=== PATIENT | female | born 1995 | race Caucasian/White ===

== ENCOUNTER 2025-05-05 10:38 | Emergency (ER) | payer OTHER, SELFPAY ==
[2025-05-05 10:51] VITALS: BP 124/75; PULSE 109; RESP 18; TEMP 37.1; O2SAT 97; BMI 20.9
--- NOTE | 2025-05-05 11:40 | ED_ITS ---
HPI - Female Genitourinary General Chief complaint: Urogenital-Female Stated complaint: V/D Weakness in left leg, Peeing blood Time Seen by Provider: 05/05/25 11:06 Source: patient Mode of arrival: Family Vehicle History of Present Illness HPI Narrative: Ms. Glass is a pleasant 30-year-old female with no reported past medical history, active duty [employer], who presents to the emergency department for hematuria x1 day and nausea/vomiting/diarrhea, cough, fatigue x1 week. Patient also reports that she has been dealing with a left-sided low back injury with pain x4 months. 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 No other medications. Patient reports today she was supplying a urine drug test for the [facility] when she urinated blood. Her menstrual cycle ended yesterday however there was no blood in her underwear, blood was only present when she provided this urine sample. This is what prompted her ER visit today. However the patient reports that for the last week she has been sick with a cough, vomiting and diarrhea, and feeling overall extremely fatigued and occasionally dizzy. She denies any known sick contacts or new foods precipitating the symptoms but reports that she did have a fever of 101 last Saturday. She had an episode of both vomiting and diarrhea this morning. Describes both as nonbloody. She has been feeling cold. Denies current fever, chest pain, shortness of breath, abdominal pain, dysuria. No medications this morning. No concern for , she is to a woman. Related Data Previous Rx's ?Medication ?Instructions ?Recorded ondansetron 4 mg disintegrating 4 mg PO Q8H PRN nausea and 05/05/25 tablet vomiting #14 tabs sulfamethoxazole 800 1 tab PO BID 7 days #14 tabs 05/05/25 mg-trimethoprim 160 mg tablet (Bactrim DS) Allergies Allergy/AdvReac Type Severity Reaction Status Date / Time No Known Drug Allergies Allergy Verified 05/05/25 10:51 Review of Systems Review of Systems ROS Unobtainable: All systems reviewed & are unremarkable except as noted in HPI and below Exam Narrative Exam Narrative: GENERAL: 30 year old patient appears stated age. Well-developed patient, in no acute distress. HEAD: Atraumatic. Normocephalic. NECK: Trachea midline. Cervical ROM intact. CARDIOVASCULAR: Regular rate and rhythm. RESPIRATORY: ?Nonlabored respirations. ?Speaking in clear, full sentences. ?Clear to auscultation. Breath sounds equal bilaterally. No wheezes, rales, or rhonchi. ? GASTROINTESTINAL: Abdomen soft, non-tender, nondistended. BS present. EXTREMITIES: No edema or joint tenderness. Palpable DP & PT pulses. BACK: L sided CVA tenderness and left lumbar tenderness. No midline spinal tenderness. NEURO: AOx3. ?Clear speech. ?Moves all 4 extremities appropriately. SKIN: No rash or erythema of visible areas Initial Vital Signs Initial Vital Signs: Vital Signs Temperature 98.8 F 05/05/25 10:51 Pulse Rate 109 H 05/05/25 10:51 Respiratory Rate 18 05/05/25 10:51 Blood Pressure 124/75 05/05/25 10:51 Pulse Oximetry 97 05/05/25 10:51 Oxygen Delivery Method Room Air 05/05/25 10:51 Course Orders Ordered: ED Orders 05/05/25 11:38 CT abdomen pelvis w con Stat XR chest 2V Stat 05/05/25 11:44 GI Panel (Film Array) Stat 05/05/25 11:53 Complete Blood Count AUTO DIFF Stat Comprehensive Metabolic Panel Stat Lipase Stat 05/05/25 12:21 Covid-19 + FLU A/B + RSV - PCR Stat 05/05/25 13:36 Urinalysis and Microscopic Stat Urine Culture Stat Discontinued Medications Sodium Chloride (Normal Saline 0.9%) 1,000 mls @ 1,000 mls/hr IV BOLUS ONE Stop: 05/05/25 12:37 Last Infusion: 05/05/25 13:41 Dose: Infused Documented By: Admin: 05/05/25 12:13 Dose: 1,000 mls/hr Documented By: AGUS Ceftriaxone Sodium 1,000 mg/ (Sodium Chloride) 100 mls @ 200 mls/hr IV NOW ONE Stop: 05/05/25 14:03 Last Admin: 05/05/25 14:23 Dose: 200 mls/hr Documented By: AGUS Ketorolac Tromethamine (Ketorolac 30 Mg/Ml Vial) 15 mg IV NOW ONE Stop: 05/05/25 11:39 Last Admin: 05/05/25 12:13 Dose: 15 mg Documented By: AGUS Ondansetron HCl (Ondansetron 4 Mg/2 Ml Inj) 4 mg IV NOW ONE Stop: 05/05/25 11:39 Last Admin: 05/05/25 12:13 Dose: 4 mg Documented By: AGUS Vital Signs Vital signs: Vital Signs - 8 hr 05/05/25 10:51 05/05/25 14:12 Temperature 98.8 F Pulse Rate 109 H 80 Respiratory Rate 18 16 Blood Pressure 124/75 104/61 Pulse Oximetry 97 99 Oxygen Delivery Method Room Air Room Air MDM - Female Genitourinary Medical Records Medical records narrative: None available for review Lab Data 05/05/25 11:53 05/05/25 11:53 Labs: Lab Results 05/05/25 05/05/25 05/05/25 Range/Units 11:53 12:21 13:36 WBC 4.3 L (4.5-11.0) X10^3/uL RBC 4.59 (4.0-5.2) X10^6/uL Hgb 13.7 (12.0-16.0) g/dL Hct 40.3 (36-46) % MCV 87.7 (80-100) fL MCH 29.9 (26-34) PG MCHC 34.1 (30-36) % RDW 12.5 (11.6-14.8) % Plt Count 259 (150-400) X10^3/uL Neut % (Auto) 52.2 (50-75) % Lymph % (Auto) 36.8 (25-40) % [place] % (Auto) 8.8 (3-14) % Eos % (Auto) 1.0 L (2-4) % Baso % (Auto) 1.2 (0-2) % Neut # (Auto) 2300 (3559-9498) /uL Lymph # (Auto) 1600 (9685-9418) /uL [place] # (Auto) 400 (0-900) /uL Eos # (Auto) 0 (0-450) /uL Baso # (Auto) 100 (0-100) /uL Sodium 140 (137-145) mmol/L Potassium 3.8 (3.4-5.1) mmol/L Chloride 106 (98-107) mmol/L Carbon Dioxide 25 (22-32) mmol/L BUN 10 (7-17) mg/dL Creatinine 0.75 (0.52-1.04) mg/dL Estimated GFR > 60 (>60) mL/min BUN/Creatinine Ratio 13.3 (6-22) Glucose 71 (70-99) mg/dL Calcium 9.3 (8.4-10.2) mg/dL Total Bilirubin 0.8 (0.2-1.3) mg/dL AST 22 (14-36) IU/L ALT 14 (<35) IU/L Alkaline Phosphatase 50 (38-126) U/L Total Protein 6.8 (6.3-8.2) g/dL Albumin 4.4 (3.5-5.0) g/dL Globulin 2.4 (1.7-4.1) g/dL Albumin/Globulin Ratio 1.8 (1.0-2.8) Lipase 52 (23-300) U/L Urine Color Red Urine Appearance Sl cloudy Urine pH 7.0 (4.5-8.0) Ur Specific Mobile <=1.005 (1.000-1.035) Urine Protein 2+ H (Negative) Urine Glucose (UA) Negative (Negative) g/dL Urine Ketones Negative (NEGATIVE) Urine Occult Blood 3+ H (Negative) Urine Nitrate Positive H (Negative) Urine Bilirubin Negative (NEGATIVE) Urine Urobilinogen 1.0 (0.2) E.U./dL Ur Leukocyte Esterase Negative (NEGATIVE) Urine RBC 10-30/hpf H (0-5/HPF) Urine WBC 1-5/hpf (0-5/HPF) Ur Squamous Epith Cells 5-10 /hpf H (0-5/HPF) Urine Bacteria Few (2-10) H (None) Ur Culture Indicated? Cult not indicated Vol Urine Centrifuged 10ml (spun) SARS-CoV-2 (PCR) Negative (Negative) Influenza A (RT-PCR) Flu a negative (NEGATIVE) Influenza B (RT-PCR) Flu b negative (NEGATIVE) RSV (PCR) Negative (Negative) Imaging Data CT scan - abdomen/pelvis: Radiologist's Impression: PROCEDURE: CT ABDOMEN PELVIS W CON INDICATIONS: n/v/d/cough; 1 week; hematuria x 1 day; L flank TECHNIQUE: After the administration of intravenous contrast, axial sections acquired from the lung bases to the pubic symphysis. Coronal and sagittal reformats were performed. For radiation dose reduction, the following was used: automated exposure control, adjustment of mA and/or kV according to patient size. COMPARISON: None. FINDINGS: Image quality: Diagnostic. Lower Chest: No significant findings. ABDOMEN: Liver: No solid mass. Gallbladder: No radiopaque gallstones or wall thickening. Biliary ducts: No biliary dilation. Pancreas: No ductal dilation. Spleen: Size is within normal limits. Adrenal Glands: No adrenal nodules. Kidneys and Ureters: 3 mm nonobstructing calculus at the superior pole of the left kidney. No hydronephrosis. No solid mass. No complex renal cystic lesion which requires follow up. Stomach and Bowel: Normal appendix. Moderate colonic stool. Small bowel loops are nondilated. Peritoneum: No abnormal intraperitoneal fluid. No free air. Ventral Wall: No significant ventral hernia. Abdominal Nodes: No retroperitoneal or mesenteric adenopathy by size criteria. Vessels: Aorta and inferior vena cava are normal in size. PELVIS: Pelvic Organs: Anteverted uterus. Ovaries are symmetric in size. Bladder: Distended urinary bladder. Pelvic Nodes: No enlarged lymph nodes. Miscellaneous: No inguinal hernias are seen. Bones: No aggressive osseous abnormality. IMPRESSION: Nonobstructing 3 mm left renal calculus. No hydronephrosis. Approved by: Ghanshyam Palmer M.D. on 05/05/2025 at 12:22 Chest x-ray: Radiologist's Impression: PROCEDURE: XR CHEST 2V INDICATIONS: cough n/v/d x 1 week TECHNIQUE: 2 views of the chest were acquired. COMPARISON: None. FINDINGS: Surgical changes and devices: None. Lungs and pleura: Lungs are clear. No pleural effusions or pneumothorax. Mediastinum: Mediastinal contours are normal. Heart size is normal. Bones and chest wall: No suspicious bony abnormalities. Soft tissues appear unremarkable. IMPRESSION: No acute cardiopulmonary abnormality is seen. Approved by: Ghanshyam Palmer M.D. on 05/05/2025 at 12:18 MDM Narrative Medical decision making narrative: 30-year-old female with no reported past medical history, active [employer], who presents to the emergency department for hematuria x1 day and nausea/vomiting/diarrhea, cough, fatigue x1 week. Differential diagnosis includes but is not limited to gastroenteritis, electrolyte abnormality, anemia, UTI, nephrolithiasis, ureterolithiasis, renal cyst, dehydration, viral syndrome, influenza, pneumonia, bronchitis, cystitis, malignancy, etc. On exam the patient is in no acute distress, nontoxic appearing, heart rate is elevated at 109 in triage otherwise vital signs are within normal limits. Her abdomen is soft and nontender however she does have some left-sided paraspinal muscle pain/CVA tenderness. Her lower extremities are neurovascularly intact. Will obtain abdominal labs, chest x-ray, viral swab, CT abdomen and pelvis, urinalysis, GI panel, and treat the patient with Toradol for left-sided flank pain, Zofran and fluids. CT abdomen pelvis reveals nonobstructing 3 mm left renal calculus. No hydronephrosis. Chest x-ray negative for acute cardiopulmonary abnormality. Viral swab negative. Labs overall reassuring with a normal hemoglobin 13.7 hematocrit 40.3. White blood cell count is slightly decreased at 4.3. Normal platelets 259. Normal CMP, BUN 10 creatinine 0.75, sodium 140 potassium 3.8, normal LFTs, glucose 71. UA reveals gross hematuria, nitrite positive, 1-5 WBC, 5-10 squamous epithelial cells, few bacteria. Urine was sent for culture. Discussed case with the attending ER physician who advises antibiotics, emergent urology consultation not necessary as stone is within the renal pelvis. Will treat patient with 1 g ceftriaxone, discharge home on Bactrim b.i.d. x7 days, advised Urology follow up. I do believe patient is also experiencing viral syndrome given her cough, nausea vomiting diarrhea. She has had no episodes of diarrhea or vomiting while in the ER. Tolerating p.o. advised prompt PCP follow up and discussed strict ED return precautions. Both the patient and her verbalized understanding of all information and are agreeable with the plan. Prescriptions of Bactrim and Zofran sent to pharmacy of choice. She is stable for discharge home, all VS WNL. Discharge Plan Departure Patient Disposition: Home Clinical Impression: Renal calculus, Nausea, vomiting, and diarrhea Hematuria Qualifiers: Hematuria type: gross Qualified Code(s): R31.0 - Gross hematuria Instructions: DI for Kidney Stones, DI for Urinary Tract Infection (UTI) Activity Restrictions/Additional Instructions: Dear Ms. Glass, Today you were evaluated for nausea, vomiting, diarrhea, left-sided back pain, bloody urine. The CT scan revealed a stone in the left kidney. Your lab work was very reassuring. Your urinalysis did show few bacteria and nitrates which is concerning for potential urinary tract infection. Please complete the full course of antibiotics and follow up with [facility] for further management. Please rest, hydrate, use ibuprofen and Tylenol if needed for pain Please take Ibuprofen (Motrin/Advil) or Acetaminophen (Tylenol) for pain. These are available over the counter. You may take Ibuprofen 600 mg every 8 hours with food for pain. You may also take Acetaminophen 650 mg every 4-6 hours for pain. Do not exceed 3000 mg of Tylenol a day as this can cause liver damage. Do not drink alcohol with either of these medications. Please return to the emergency department immediately if you develop any new or worsening symptoms, severe pain, persistent vomiting, fevers, inability to urinate, or other concerns. Please follow up with your primary care doctor within the next 2-3 days for ER follow-up. (If you do not have a PCP you can call [phone]. ?to schedule an appointment with an [facility] Primary Care Provider) IF YOU DEVELOP ANY NEW OR WORSENING SYMPTOMS, RETURN TO THE ER! Please read the attached instructions, they highlight more specific treatments and interventions for you at home. Thank you for letting me participate in your care, Amanda Zhu PA-C Prescriptions: New sulfamethoxazole-trimethoprim [Bactrim DS] 800-160 mg tablet 1 tab PO BID 7 Days Qty: 14 0RF ondansetron 4 mg tablet,disintegrating 4 mg PO Q8H PRN (Reason: nausea and vomiting) Qty: 14 0RF Referrals: Luis Fernando Wang DO [Physician, Urology] Referral Note: 30 yo F with hematuria, 3mm left renal calculus Provider,Courtney BLACKWELL [Primary Care Provider, Family Practice] Stand Alone Forms: Patient Portal/API, Work Release Note
[2025-05-05 12:05] LABS: Add Manual Diff / Slide Review NO; Basophils Absolute Auto 100 /uL (0-100); Basophils Percent Auto 1.2 % (0-2); Eosinophils Absolute Auto 0 /uL (0-450); Hematocrit 40.3 % (36-46); Hemoglobin 13.7 g/dL (12.0-16.0); Lymphocytes Absolute Auto 1600 /uL (1100-4500); Lymphocytes Percent Auto 36.8 % (25-40); Mean Corpuscular HGB Conc 34.1 % (30-36); Mean Corpuscular Hemoglobin 29.9 PG (26-34); Mean Corpuscular Volume 87.7 fL (80-100); Monocytes Absolute Auto 400 /uL (0-900); Monocytes Percent Auto 8.8 % (3-14); Neutrophils Absolute Auto 2300 /uL (1500-7000); Neutrophils Percent Auto 52.2 % (50-75); Platelet Count 259 X10^3/uL (150-400); Red Blood Cell Count 4.59 X10^6/uL (4.0-5.2); Red Cell Distribution Width 12.5 % (11.6-14.8); White Blood Cell Count 4.3 X10^3/uL (4.5-11.0)
[2025-05-05] MEDS: ONDANSETRON 4 MG/2 ML INJ IV (12:13)
[2025-05-05] MEDS: KETOROLAC 30 MG/ML VIAL 15 MG IV (12:13)
[2025-05-05] MEDS: SODIUM CHLORIDE 0.9% 1,000 ML 1000 ML IV (12:13)
[2025-05-05 12:14] LABS: Alanine Aminotransferase 14 IU/L (<35); Albumin 4.4 g/dL (3.5-5.0); Albumin Globulin Ratio 1.8 (1.0-2.8); Alkaline Phosphatase 50 U/L (38-126); Aspartate Aminotransferase 22 IU/L (14-36); BUN Creatinine Ratio 13.3 (6-22); Bilirubin Total 0.8 mg/dL (0.2-1.3); Blood Urea Nitrogen 10 mg/dL (7-17); Calcium 9.3 mg/dL (8.4-10.2); Carbon Dioxide 25 mmol/L (22-32); Chloride 106 mmol/L (98-107); Estimated Glomerular Filt Rate > 60 mL/min (>60); Globulin 2.4 g/dL (1.7-4.1); Glucose 71 mg/dL (70-99); HEMOLYSIS < 15 (0-50); Lipase 52 U/L (23-300); Potassium 3.8 mmol/L (3.4-5.1); Sodium 140 mmol/L (137-145); Total Protein 6.8 g/dL (6.3-8.2)
[2025-05-05 13:05] LABS: COVID-19 CEPHEID 4-PLEX PCR Negative (Negative); Influenza A - CEPHEID Flu A NEGATIVE (NEGATIVE); Influenza B - CEPHEID Flu B NEGATIVE (NEGATIVE); Respiratory Syncytial Virus Negative (Negative)
[2025-05-05 13:50] LABS: Appearance Urine UA SL CLOUDY; Bilirubin Urine UA NEGATIVE (NEGATIVE); Color Urine UA RED; Glucose Urine UA NEGATIVE (Negative); Ketones Urine UA NEGATIVE (NEGATIVE); Leukocyte Esterase Urine UA NEGATIVE (NEGATIVE); Nitrite Urine UA POSITIVE (Negative); Occult Blood Urine UA 3+ (Negative); Protein Urine UA 2+ (Negative); Specific Gravity Urine UA <=1.005 (1.000-1.035)
[2025-05-05 13:57] LABS: Bacteria Urine Few (2-10); Culture Indicated Urine Cult Not Indicated; RBC Urine 10-30/HPF (0-5/HPF); Squamous Epithelial Cell Urine 5-10 /HPF (0-5/HPF); Urine Volume 10mL (spun); WBC Urine 1-5/HPF (0-5/HPF)
[2025-05-05 14:12] VITALS: BP 104/61; PULSE 80; RESP 16; O2SAT 99
[2025-05-05] MEDS: cefTRIAXone 1,000 MG in SODIUM CHLORIDE 0.9% 100 ML 200 MG IV (14:23)
== END 2025-05-05 14:56 | disposition home or self-care (01) ==
PROVIDERS: Emergency Provider Physician Assistant
DX: N20.0 Calculus of kidney (principal); R31.0 Gross hematuria; R11.2 Nausea with vomiting, unspecified; R19.7 Diarrhea, unspecified
CPT/HCPCS: 0241U; 36415; 71046; 74177; 80053; 81001; 83690; 85025; 87077; 87086; 87186; 96361; 96365; 96375; 99285; J0696; J1885; J2405; Q9967

== ENCOUNTER 2025-05-07 17:45 | Emergency (ER) | payer OTHER, SELFPAY ==
[2025-05-07 17:46] VITALS: BP 118/75; PULSE 82; RESP 14; TEMP 36.9; O2SAT 98; BMI 21.2
[2025-05-07 17:54] VITALS: BP 118/75
[2025-05-07 17:55] VITALS: PULSE 85; O2SAT 99
[2025-05-07 18:00] VITALS: PULSE 82; O2SAT 96
--- NOTE | 2025-05-07 18:07 | ED.GENADULT ---
HPI - General Adult General Chief complaint: Urogenital-Female Stated complaint: Kidney pain, nausea, Vomiting blood x1day Time Seen by Provider: 05/07/25 18:00 Source: patient Mode of arrival: Ambulatory History of Present Illness HPI narrative: 30-year-old female recent diagnosis of a kidney stone on 05/05/2025 presenting for hematemesis. Patient states that she is still having some pain to her left flank, she states that it is worse which is the reason why she came in today. States that she has been taking her medication as prescribed. Denies any other symptoms at this time not on any blood thinners. Patient was discharged home with oral antibiotics and has been taking this. Related Data Previous Rx's ?Medication ?Instructions ?Recorded ondansetron 4 mg disintegrating 4 mg PO Q8H PRN nausea and 05/05/25 tablet vomiting #14 tabs sulfamethoxazole 800 1 tab PO BID 7 days #14 tabs 05/05/25 mg-trimethoprim 160 mg tablet (Bactrim DS) Allergies Allergy/AdvReac Type Severity Reaction Status Date / Time No Known Drug Allergies Allergy Verified 05/07/25 17:57 Review of Systems Review of Systems Narrative: General: Denies fever, chills, weight loss HEENT: Denies headache, eye drainage, eye irritation, head trauma, sore throat, voice change Cardiovascular: Denies any chest pain, palpitations, tachycardia Respiratory: Denies any shortness of breath, cough, wheeze, stridor GI/: Positive left-sided flank pain, 1 episode hematemesis Denies any abdominal pain,diarrhea, bright red blood per rectum, melanotic stools, urinary frequency, urinary retention, dysuria, hematuria MSK: Denies any joint pain, muscle pains, swelling Skin: Denies any rashes, lesions, discoloration Neuro: Denies any headache, lightheadedness, dizziness, fainting, weakness Psych: Denies SI/HI Patient History Social History Smoking Status: Unknown if ever smoked Smoking Status: Unknown if ever smoked Exam Narrative Exam Narrative: General: Cooperative, well-developed, not in acute distress HEENT: Normocephalic, atraumatic, PERRLA, normal sclera, eyelids normal Neck: Active full range of motion, atraumatic Chest: Normal to inspection, negative crepitus, no overlying erythema ecchymosis Respiratory: Normal respiratory effort, not in acute respiratory distress, clear to auscultation bilaterally negative cough, wheeze, tachypnea, rhonchi, rales Cardiology: Regular rate rhythm negative gallop, murmur, rubs GI/: Positive left CVA tenderness No tenderness to palpation, soft, non rigid, normal to inspection, exam deferred MSK: Full active range of motion in all 4 extremities, atraumatic, no tenderness to palpation of any bony prominences Skin: No rashes or lesions noted Neuro: Alert awake oriented x3, moves all 4 extremities spontaneously, cranial nerves intact, able to answer all questions appropriately follows commands appropriately Psych: Cooperative, negative suicidal or homicidal ideations Initial Vital Signs Initial Vital Signs: Vital Signs Temperature 98.4 F 05/07/25 17:46 Pulse Rate 82 05/07/25 17:46 Respiratory Rate 14 05/07/25 17:46 Blood Pressure 118/75 05/07/25 17:46 Pulse Oximetry 98 05/07/25 17:46 Oxygen Delivery Method Room Air 05/07/25 17:46 Course Orders Ordered: ED Orders 05/07/25 17:52 Urine Microscopic Stat 05/07/25 18:12 CT kidney ureter bladder (KUB) Stat 05/07/25 18:13 CXR [XR chest 1V] Stat 05/07/25 18:35 Complete Blood Count AUTO DIFF Stat Comprehensive Metabolic Panel Stat Lipase Stat Ondansetron HCl (Ondansetron 4 Mg/2 Ml Inj) 4 mg IV NOW PRN PRN Reason: Nausea And Vomiting Ondansetron HCl (Ondansetron 4 Mg Odt) 4 mg PO NOW PRN PRN Reason: Nausea And Vomiting Discontinued Medications Sodium Chloride (Normal Saline 0.9%) 1,000 mls @ 1,000 mls/hr IV BOLUS ONE Stop: 05/07/25 19:11 Last Infusion: 05/07/25 19:19 Dose: Infused Documented By: Infusion: 05/07/25 19:18 Dose: 0 mls/hr Documented By: Infusion: 05/07/25 19:17 Dose: 0 mls/hr Documented By: Admin: 05/07/25 18:39 Dose: 1,000 mls/hr Documented By: LM Ketorolac Tromethamine (Ketorolac 30 Mg/Ml Vial) 30 mg IV NOW ONE Stop: 05/07/25 18:13 Last Admin: 05/07/25 18:39 Dose: 30 mg Documented By: LM Ondansetron HCl (Ondansetron 4 Mg/2 Ml Inj) 4 mg IV NOW ONE Stop: 05/07/25 18:13 Last Admin: 05/07/25 18:39 Dose: 4 mg Documented By: LM Vital Signs Vital signs: Vital Signs - 8 hr 05/07/25 17:46 05/07/25 17:54 05/07/25 17:55 Temperature 98.4 F Pulse Rate 82 85 Respiratory Rate 14 Blood Pressure 118/75 118/75 Pulse Oximetry 98 99 Oxygen Delivery Method Room Air 05/07/25 18:00 05/07/25 18:11 05/07/25 18:11 Temperature Pulse Rate 82 79 Respiratory Rate Blood Pressure 106/64 Pulse Oximetry 96 98 Oxygen Delivery Method Medical Decision Making Differential Diagnosis Differential Diagnosis: pyelonephritis, urolithiasis, urosepsis Lab Data 05/07/25 18:35 05/07/25 18:35 Labs: Lab Results 05/07/25 05/07/25 Range/Units 17:52 18:35 WBC 5.5 (4.5-11.0) X10^3/uL RBC 4.39 (4.0-5.2) X10^6/uL Hgb 13.2 (12.0-16.0) g/dL Hct 38.5 (36-46) % MCV 87.6 (80-100) fL MCH 30.1 (26-34) PG MCHC 34.4 (30-36) % RDW 12.4 (11.6-14.8) % Plt Count 255 (150-400) X10^3/uL Neut % (Auto) 54.4 (50-75) % Lymph % (Auto) 36.3 (25-40) % [place] % (Auto) 7.4 (3-14) % Eos % (Auto) 1.1 L (2-4) % Baso % (Auto) 0.8 (0-2) % Neut # (Auto) 3000 (6946-6204) /uL Lymph # (Auto) 2000 (6688-8119) /uL [place] # (Auto) 400 (0-900) /uL Eos # (Auto) 100 (0-450) /uL Baso # (Auto) 0 (0-100) /uL Sodium 140 (137-145) mmol/L Potassium 3.5 (3.4-5.1) mmol/L Chloride 109 H (98-107) mmol/L Carbon Dioxide 23 (22-32) mmol/L BUN 14 (7-17) mg/dL Creatinine 0.86 (0.52-1.04) mg/dL Estimated GFR > 60 (>60) mL/min BUN/Creatinine Ratio 16.3 (6-22) Glucose 79 (70-99) mg/dL Calcium 9.3 (8.4-10.2) mg/dL Total Bilirubin 0.5 (0.2-1.3) mg/dL AST 21 (14-36) IU/L ALT 14 (<35) IU/L Alkaline Phosphatase 46 (38-126) U/L Total Protein 6.4 (6.3-8.2) g/dL Albumin 4.1 (3.5-5.0) g/dL Globulin 2.3 (1.7-4.1) g/dL Albumin/Globulin Ratio 1.8 (1.0-2.8) Lipase 56 (23-300) U/L Urine RBC 10-30/hpf H (0-5/HPF) Urine WBC 0-1/hpf (0-5/HPF) Ur Squamous Epith Cells 10-30 /hpf H (0-5/HPF) Urine Bacteria Few (2-10) H (None) Ur Culture Indicated? Cult not indicated Vol Urine Centrifuged 10ml (spun) Point of Care Testing Test Results Negative Urine Dip Bedside Urine Glucose Negative Bedside Urine Bilirubin - Negative Bedside Urine Ketone - Negative Urine Specific [place] 1.05 Bedside Urine Occult Blood +++ Bedside Urine pH 6.0 Bedside Urine Protein - Negative Bedside Urine Urobilinogen +/- 1mg Bedside Urine Nitrite - Negative Bedside Urine Leukocytes - Negative Esterase Point of care testing: Point of Care Testing Test Results Negative Urine Dip Bedside Urine Glucose Negative Bedside Urine Bilirubin - Negative Bedside Urine Ketone - Negative Urine Specific [place] 1.05 Bedside Urine Occult Blood +++ Bedside Urine pH 6.0 Bedside Urine Protein - Negative Bedside Urine Urobilinogen +/- 1mg Bedside Urine Nitrite - Negative Bedside Urine Leukocytes - Negative Esterase Imaging Data Chest x-ray: Radiologist's Impression: [place] [id number] XRay Report Signed Patient: Maria Luz Glass MR#: [id number] : 1995 Acct:[id number] Age/Sex: 30 / F Date of Service: 05/07/25 Loc: ED Accession Number: [id number] Procedure: XR chest 1V Ordering Provider: Yaron Carlos D.O. PROCEDURE: XR CHEST 1V INDICATIONS: hemetemsis TECHNIQUE: One view of the chest was acquired. COMPARISON: [facility], CR, XR CHEST 2V, 05/05/2025, 11:50. FINDINGS: Surgical changes and devices: None. Lungs and pleura: Lungs are clear. No pleural effusions or pneumothorax. Mediastinum: Mediastinal contours appear normal. Heart size is normal. Bones and chest wall: No suspicious bony lesions. Overlying soft tissues appear unremarkable. IMPRESSION: No acute pulmonary process. CT scan - abdomen/pelvis: Radiologist's Impression: [facility] [address] [place] [id number] Scan Report Signed Patient: Maria Luz Glass MR#: [id number] : 1995 Acct:[id number] Age/Sex: 30 / F Date of Service: 05/07/25 Loc: ED Accession Number: [id number] Procedure: CT kidney ureter bladder (KUB) Ordering Provider: Yaron Carlos D.O. PROCEDURE: CT KIDNEY URETER BLADDER (KUB) INDICATIONS: left flank pain with known 3mm stone TECHNIQUE: Axial sections were acquired from the lung bases to the pubic symphysis. Coronal and sagittal reformats were performed. For radiation dose reduction, the following was used: automated exposure control, adjustment of mA and/or kV according to patient size. COMPARISON: [facility], CT, CT ABDOMEN PELVIS W CON, 05/05/2025, 11:57. FINDINGS: Image quality: Diagnostic. Lower Chest: No significant findings. URINARY: Right Kidney: No stones or hydronephrosis. Right Ureter: No hydroureter. Left Kidney: Punctate non-obstructing calculus. Left Ureter: No hydroureter. Bladder: Normal wall thickness. No stones. ABDOMEN: Liver: No contour-deforming solid mass. Gallbladder: No radiopaque gallstones or wall thickening. Biliary ducts: No biliary dilation. Pancreas: No ductal dilation. Spleen: Size is within normal limits. Adrenal Glands: No adrenal nodules. Stomach and Bowel: Normal colonic caliber, without significant wall thickening. Moderate colonic stool without obstruction. Peritoneum: No abnormal intraperitoneal fluid. No free air. Ventral Wall: No hernia. Abdominal Nodes: No enlarged retroperitoneal or mesenteric lymph nodes. Vessels: Aorta and inferior vena cava are normal in size. PELVIS: Pelvic Organs: Unremarkable. Pelvic Nodes: Unremarkable. Miscellaneous: No inguinal hernias are seen. Bones: Unremarkable. IMPRESSION: No obstructing stones or hydronephrosis. Stable interval exam demonstrating nonobstructing left renal calculus. Moderate colonic stool without obstruction. MDM Narrative Medical decision making narrative: Patient is a 30-year-old female who presents without any significant past history for persistent left-sided flank pain, states that she was here on 05/05/2025 was diagnosed with a 3 mm nonobstructing stone was discharged home with oral antibiotics, but she presents due to worsening pain to her left side, she states that none of the medications are helping states that she has had worse nausea and vomiting that led to 1 episode of hematemesis. She denies any other symptoms at this time, patient had repeat lab work urinalysis and imaging here in the emergency department. Urinalysis not consistent with an acute urinary tract infection patient without any leukocytosis Chem panel unremarkable, patient's symptoms most likely viral in nature however given patient stating she is still having significant amount of pain we will prescribe short course of analgesics also instructed patient to performed bowel rest and to take her Zofran every 8 hours for the next 24 hours, she states that she has been following with the primary care doctor on Saturday, she was given strict return precautions she verbalized understanding of this and agrees to being discharged home with outpatient follow up Review of records shows that patient had CT of the abdomen on 6 the states this is 25 that did show a nonobstructing 3 mm left renal calculus with no hydronephrosis Discharge Plan Departure Patient Disposition: Home Clinical Impression: Nausea and vomiting Activity Restrictions/Additional Instructions: Please follow up primary care doctor Please read the discharge instructions sheet carefully and bring all papers to all doctor follow-up visits, as it may contain information that your doctor may want to see. Disease processes change and evolve, if your symptoms worsen or if you develop any new symptoms that are concerning to you please return for evaluation. Your evaluation today does not show any evidence of any life-threatening/serious illnesses requiring admission to the hospital or surgery. Please follow-up with your doctor for re-evaluation in approximately 1 day. Seek immediate medical attention for any worrisome symptoms. *If you do not have a primary care provider please contact the [facility] Resource line at [phone]. They will ask some questions about your medical history and help get you set up with a doctor in the community. Prescriptions: No Action sulfamethoxazole-trimethoprim [Bactrim DS] 800-160 mg tablet 1 tab PO BID 7 Days Qty: 14 0RF ondansetron 4 mg tablet,disintegrating 4 mg PO Q8H PRN (Reason: nausea and vomiting) Qty: 14 0RF Referrals: ProviderCourtney [Primary Care Provider, Family Practice] Stand Alone Forms: Patient Portal/API
[2025-05-07 18:11] VITALS: BP 106/64; PULSE 79; O2SAT 98
--- NOTE | 2025-05-07 18:12 | DI.CT.S_ITS ---
PROCEDURE: CT KIDNEY URETER BLADDER (KUB) INDICATIONS: left flank pain with known 3mm stone TECHNIQUE: Axial sections were acquired from the lung bases to the pubic symphysis. Coronal and sagittal reformats were performed. For radiation dose reduction, the following was used: automated exposure control, adjustment of mA and/or kV according to patient size. COMPARISON: [facility], CT, CT ABDOMEN PELVIS W CON, 05/05/2025, 11:57. FINDINGS: Image quality: Diagnostic. Lower Chest: No significant findings. URINARY: Right Kidney: No stones or hydronephrosis. Right Ureter: No hydroureter. Left Kidney: Punctate non-obstructing calculus. Left Ureter: No hydroureter. Bladder: Normal wall thickness. No stones. ABDOMEN: Liver: No contour-deforming solid mass. Gallbladder: No radiopaque gallstones or wall thickening. Biliary ducts: No biliary dilation. Pancreas: No ductal dilation. Spleen: Size is within normal limits. Adrenal Glands: No adrenal nodules. Stomach and Bowel: Normal colonic caliber, without significant wall thickening. Moderate colonic stool without obstruction. Peritoneum: No abnormal intraperitoneal fluid. No free air. Ventral Wall: No hernia. Abdominal Nodes: No enlarged retroperitoneal or mesenteric lymph nodes. Vessels: Aorta and inferior vena cava are normal in size. PELVIS: Pelvic Organs: Unremarkable. Pelvic Nodes: Unremarkable. Miscellaneous: No inguinal hernias are seen. Bones: Unremarkable. IMPRESSION: No obstructing stones or hydronephrosis. Stable interval exam demonstrating nonobstructing left renal calculus. Moderate colonic stool without obstruction. Dictated by: Hazel Luis M.D. on 05/07/2025 at 18:53 Approved by: Hazel Luis M.D. on 05/07/2025 at 18:57
--- NOTE | 2025-05-07 18:13 | DI.RAD.S_ITS ---
PROCEDURE: XR CHEST 1V INDICATIONS: hemetemsis TECHNIQUE: One view of the chest was acquired. COMPARISON: [facility], CR, XR CHEST 2V, 05/05/2025, 11:50. FINDINGS: Surgical changes and devices: None. Lungs and pleura: Lungs are clear. No pleural effusions or pneumothorax. Mediastinum: Mediastinal contours appear normal. Heart size is normal. Bones and chest wall: No suspicious bony lesions. Overlying soft tissues appear unremarkable. IMPRESSION: No acute pulmonary process. Dictated by: Hazel Luis M.D. on 05/07/2025 at 18:51 Approved by: Hazel Luis M.D. on 05/07/2025 at 18:52
[2025-05-07 18:33] LABS: Bacteria Urine Few (2-10); RBC Urine 10-30/HPF (0-5/HPF); Squamous Epithelial Cell Urine 10-30 /HPF (0-5/HPF); Urine Volume 10mL (spun); WBC Urine 0-1/HPF (0-5/HPF)
[2025-05-07 18:34] LABS: Culture Indicated Urine Cult Not Indicated
[2025-05-07] MEDS: KETOROLAC 30 MG/ML VIAL IV (18:39)
[2025-05-07] MEDS: SODIUM CHLORIDE 0.9% 1,000 ML 1000 ML IV (18:39)
[2025-05-07] MEDS: ONDANSETRON 4 MG/2 ML INJ IV (18:39)
[2025-05-07 18:47] LABS: Add Manual Diff / Slide Review NO; Basophils Absolute Auto 0 /uL (0-100); Basophils Percent Auto 0.8 % (0-2); Eosinophils Absolute Auto 100 /uL (0-450); Eosinophils Percent Auto 1.1 % (2-4); Hematocrit 38.5 % (36-46); Hemoglobin 13.2 g/dL (12.0-16.0); Lymphocytes Absolute Auto 2000 /uL (1100-4500); Lymphocytes Percent Auto 36.3 % (25-40); Mean Corpuscular HGB Conc 34.4 % (30-36); Mean Corpuscular Hemoglobin 30.1 PG (26-34); Mean Corpuscular Volume 87.6 fL (80-100); Monocytes Absolute Auto 400 /uL (0-900); Monocytes Percent Auto 7.4 % (3-14); Neutrophils Absolute Auto 3000 /uL (1500-7000); Neutrophils Percent Auto 54.4 % (50-75); Platelet Count 255 X10^3/uL (150-400); Red Blood Cell Count 4.39 X10^6/uL (4.0-5.2); Red Cell Distribution Width 12.4 % (11.6-14.8); White Blood Cell Count 5.5 X10^3/uL (4.5-11.0)
[2025-05-07 19:07] LABS: Alanine Aminotransferase 14 IU/L (<35); Albumin 4.1 g/dL (3.5-5.0); Albumin Globulin Ratio 1.8 (1.0-2.8); Alkaline Phosphatase 46 U/L (38-126); Aspartate Aminotransferase 21 IU/L (14-36); BUN Creatinine Ratio 16.3 (6-22); Bilirubin Total 0.5 mg/dL (0.2-1.3); Blood Urea Nitrogen 14 mg/dL (7-17); Calcium 9.3 mg/dL (8.4-10.2); Carbon Dioxide 23 mmol/L (22-32); Chloride 109 mmol/L (98-107); Estimated Glomerular Filt Rate > 60 mL/min (>60); Globulin 2.3 g/dL (1.7-4.1); Glucose 79 mg/dL (70-99); HEMOLYSIS < 15 (0-50); Lipase 56 U/L (23-300); Potassium 3.5 mmol/L (3.4-5.1); Sodium 140 mmol/L (137-145); Total Protein 6.4 g/dL (6.3-8.2)
[2025-05-07] MEDS: OXYCODONE/APAP 5/325 PREPACK 1 BOTTLE MISC (19:33)
[2025-05-07 19:37] VITALS: BP 93/56; PULSE 67; O2SAT 97
== END 2025-05-07 19:34 | disposition home or self-care (01) ==
PROVIDERS: Emergency Provider Student in an Organized Health Care Education/Training Program
DX: R11.2 Nausea with vomiting, unspecified (principal); R10.9 Unspecified abdominal pain
CPT/HCPCS: 36415; 71045; 74176; 80053; 81003; 81015; 81025; 83690; 85025; 96361; 96374; 96375; 99284; J1885; J2405

== ENCOUNTER → 2025-08-11 06:55 | Outpatient (CLI) | payer OTHER, SELFPAY ==
--- NOTE | 2025-08-11 08:23 | DI.CT.S_ITS ---
PROCEDURE: CT ABDOMEN PELVIS W CON INDICATIONS: abdominal pain TECHNIQUE: After the administration of intravenous contrast, axial sections acquired from the lung bases to the pubic symphysis. Coronal and sagittal reformats were performed. For radiation dose reduction, the following was used: automated exposure control, adjustment of mA and/or kV according to patient size. COMPARISON: [facility], CT, CT IVP, 06/16/2025, 8:08. [facility], CT, CT ABDOMEN PELVIS W CON, 05/05/2025, 11:57. FINDINGS: Image quality: Diagnostic. Lower Chest: No significant findings. ABDOMEN: Liver: No solid mass. Gallbladder: No radiopaque gallstones or wall thickening. Biliary ducts: No biliary dilation. Pancreas: No ductal dilation. Spleen: Size is within normal limits. Adrenal Glands: No adrenal nodules. Kidneys and Ureters: No hydronephrosis. No solid mass. No complex renal cystic lesion which requires follow up. Stable punctate nonobstructing calculus on the left. Stomach and Bowel: Normal colonic caliber, without significant wall thickening. The appendix is normal Peritoneum: No abnormal intraperitoneal fluid. No free air. Ventral Wall: No significant ventral hernia. Abdominal Nodes: No retroperitoneal or mesenteric adenopathy by size criteria. Vessels: Aorta and inferior vena cava are normal in size. PELVIS: Pelvic Organs: Unremarkable. Bladder: No bladder wall thickening, accounting for underdistention. Pelvic Nodes: No enlarged lymph nodes. Miscellaneous: No inguinal hernias are seen. Bones: No aggressive osseous abnormality. IMPRESSION: No acute intra-abdominal abnormality. Dictated by: Curtis Dumont M.D. on 08/11/2025 at 15:08 Approved by: Curtis Dumont M.D. on 08/11/2025 at 15:13
== END ==
LOC: CT 06:56
DX: R63.0 Anorexia (principal); R11.2 Nausea with vomiting, unspecified
CPT/HCPCS: 74177; Q9967

== ENCOUNTER 2025-08-28 19:15 | Emergency (ER) | payer OTHER, SELFPAY ==
[2025-08-28 19:28] VITALS: BP 114/78; PULSE 68; RESP 19; TEMP 36.1; O2SAT 100; BMI 18.8
--- NOTE | 2025-08-28 20:30 | PC.NURSE ---
pt c/o generalized pain, states in Dec this year she was lifting a generator when she felt her back become tight and the next day she was unable to walk, since then she has been declining pt is under the care of a neurologist and has been having testing done to determine the cause of her pain, and weakness in the left side. pt states she is on cymbalta and gabapentin for the pain but it is not helping she has been unable to eat and has lost about 15lbs d/t the pain and nausea, takes zofran at home which is not working. pt is tender to touch in the areas of most pain head, neck back and spine. light or noise does not affect the h/a pt states she has had migraines in the past and this does not feel like a migraine, at present she has a h/a her whole head. pt moves all extremities with out difficulties
--- NOTE | 2025-08-28 21:55 | ED.HA ---
HPI - Headache General Chief Complaint: Headache Stated Complaint: Dizzy, vomiting, back pain, left sided weakness Time Seen by Provider: 08/28/25 19:23 Mode of arrival: Ambulatory History of Present Illness HPI Narrative: 22-year-old female with pain all over. 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 All her symptoms initiated after lifting a generator by herself for about a week back in December of 2024 of this year. She suddenly had a back spasm and had difficulty ambulating. She denies any saddle anesthesia at this time. She has had a MRI of her brain as well as her spine approximately 2 months ago which did not explain a reason for her symptoms. Patient is looking for pain and nausea relief at this time. Related Data Previous Rx's ?Medication ?Instructions ?Recorded ondansetron 4 mg disintegrating 4 mg PO Q8H PRN nausea and 05/05/25 tablet vomiting #14 tabs Allergies Allergy/AdvReac Type Severity Reaction Status Date / Time No Known Drug Allergies Allergy Verified 08/28/25 19:28 Patient History Social History Smoking Status: Never smoker Smoking Status: Never smoker Exam Narrative Exam Narrative: General: Patient appears to be in no acute distress, acting appropriately Head: normocephalic, atraumatic, HEENT: Pupils equal round reactive, eyes tracking well, neck supple, no JVD Heart: regular rate and rhythm, no murmurs, rubs, or gallops heard Lungs: clear to auscultation, no adventitious sounds Abdomen: soft , nontender, nondistended, positive bowel sounds Neurological: no focal neurological signs, moving all extremities well, alert and oriented x3, more left-sided slight weakness. Psych: good judgment ,good insight, mood is normal. Initial Vital Signs Initial Vital Signs: Vital Signs Temperature 97.0 F L 08/28/25 19:28 Pulse Rate 68 08/28/25 19:28 Respiratory Rate 19 08/28/25 19:28 Blood Pressure 114/78 08/28/25 19:28 Pulse Oximetry 100 08/28/25 19:28 Oxygen Delivery Method Room Air 08/28/25 19:28 Course Orders Ordered: Discontinued Medications Hydrocodone Bitart/Acetaminophen (Hydrocodone/Acet 5/325 Prepack) 1 bottle MISC DIRECTED ONE Stop: 08/28/25 23:24 Last Admin: 08/28/25 23:31 Dose: 1 bottle Documented By: URIEL Droperidol (Droperidol 2.5 Mg/Ml Vial) 1.25 mg IM NOW ONE Stop: 08/28/25 22:13 Last Admin: 08/28/25 22:20 Dose: 1.25 mg Documented By: URIEL Reevaluation(s) Reevaluation #1: Upon re-evaluation, patient is much improved after some droperidol. Patient refuses any further pain medications and is okay to be discharged with some [place] to be used as needed. Time: 23:25 Vital Signs Vital signs: Vital Signs - 8 hr 08/28/25 19:28 08/28/25 22:14 08/28/25 22:15 Temperature 97.0 F L Pulse Rate 68 71 70 Respiratory Rate 19 16 Blood Pressure 114/78 120/78 Pulse Oximetry 100 99 100 Oxygen Delivery Method Room Air 08/28/25 22:30 08/28/25 22:30 08/28/25 22:56 Temperature Pulse Rate 66 82 Respiratory Rate Blood Pressure 113/78 Pulse Oximetry 97 98 Oxygen Delivery Method 08/28/25 22:56 08/28/25 23:00 08/28/25 23:00 Temperature Pulse Rate 78 Respiratory Rate Blood Pressure 113/83 116/87 Pulse Oximetry 98 Oxygen Delivery Method MDM - Headache MDM Narrative Medical decision making narrative: 30-year-old female with pain all over and nausea without a clear diagnosis as of yet. Her imaging has yet to show a reason for her pain and symptoms. She is feeling much more relieved after some droperidol. She refuses any other further pain meds at this time and feels good enough to be discharged. We will go ahead and discharge with a take-home pack of some [place]. Advised to follow up with Neurology as planned. Discharge Plan Departure Patient Disposition: Home Clinical Impression: Chronic pain after musculoskeletal injury, Nausea Instructions: DI for Chronic Pain -- Adult Activity Restrictions/Additional Instructions: Use pain meds as prescribed. Advised to follow up with Neurology as planned. Can come sooner if pain not quite controlled or new symptoms arise. Continue with workup. Prescriptions: No Action ondansetron 4 mg tablet,disintegrating 4 mg PO Q8H PRN (Reason: nausea and vomiting) Qty: 14 0RF Referrals: Tonio Castillo MD [Primary Care Provider, Family Practice] Stand Alone Forms: Patient Portal/API
[2025-08-28 22:14] VITALS: PULSE 71; O2SAT 99
[2025-08-28 22:15] VITALS: BP 120/78; PULSE 70; RESP 16; O2SAT 100
[2025-08-28] MEDS: droPERidol 2.5 MG/ML VIAL 1.25 MG IM (22:20)
[2025-08-28 22:30] VITALS: BP 113/78; PULSE 66; O2SAT 97
[2025-08-28 22:56] VITALS: BP 113/83; PULSE 82; O2SAT 98
[2025-08-28 23:00] VITALS: BP 116/87; PULSE 78; O2SAT 98
== END 2025-08-28 23:36 | disposition home or self-care (01) ==
PROVIDERS: Emergency Provider Family Medicine
DX: G89.21 Chronic pain due to trauma (principal); R53.1 Weakness; R11.0 Nausea
CPT/HCPCS: 96372; 99283; J1790

== ENCOUNTER → 2025-09-16 10:48 | Outpatient (CLI) | payer OTHER, SELFPAY ==
--- NOTE | 2025-09-16 16:30 | ST.SWALLOW ---
Visit Care Team Role Provider Type Tonio Castillo MD Attending Provider Non-Staff Family Provider Primary Care Provider Referring Provider Specialty: Family Practice Address: [address] [place] [address], [id number] Email: Modified Barium Swallow Study CHEMICAL TECHNICIAN Modified Barium Swallow Study Start: 09/16/25 14:52 Freq: Status: Active Protocol: Document 09/16/25 14:52 LNK (Rec: 09/16/25 16:14 LNK Desktop) Modified Barium Swallow Study Total Time Visit Start Time 11:00 Visit Stop Time 11:45 Total Visit Minutes [address] Castillo Reason for Referral Dysphagia Setting Setting Outpatient Care Patient Information Identification Type Name,Date of Patient History Pt was seen for a Modified Barium Swallow Study with c/ o difficulty swallowing solid foods and pills. Pt described her swallow as foods/pills sticking in her throat (pointing to sternal area). She denied difficulty with liquids. She added that she will regurgitate undigested foods, and at times, will vomit frequently when she is in pain. Pt reported significant back pain following a period of time doing heavy lifting in December 2024 . 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 She described pain in her body that seems to move . She experiences left side weakness, painful neck and back spasms and numbness in her lower torso. Pt walks with a cane and noted her left leg is very weak. She reported that she has been diagnoses with nerve damage as well as spinal changes. Pt reported seeing a neurologist. Subjective Pt was seated in the flouroscopy chair with directions Observations and procedures explained for her. She indicated he understood and agreed to proceed. Patient Positioning Position View Lat-A/P Imaging Lateral View Textures Administered Trials Presented Thin Liquid via Spoon (IDDSI 0),Thin Liquid via Cup ( IDDSI 0),Extremely Thick Liquid via Spoon (IDDSI 4), Regular (IDDSI 7) Barium Tablet Yes The IDDSI Framework Protocol: IDDSI.1 Oral Impairment Source: The Modified Barium Swallow Impairment Profile (MBSImP??) Lip Closure No labial escape Tongue Control Cohesive bolus between tongue to palatal seal During Bolus Hold Bolus Preparation/ Timely & efficient chewing & mashing Mastication Bolus Transport/ Brisk tongue motion Lingual Motion Oral Residue Complete oral clearance Initiation of Bolus head at posterior angle of ramus (first hyoid Pharyngeal Swallow excursion) Additional Oral *OME and DKS were observed to be WNL. Impairment *Dentition natural and in good hygiene Observations *Mastication observed with rotary chew pattern. *Good bolus formation, control and AP transition. *Velopharyngeal closure was WNL. Oral phase of swallow observed to be WNL Pharyngeal Impairment Source: The Modified Barium Swallow Impairment Profile (MBSImP??) Soft Palate No bolus between soft palate & pharyngeal wall Elevation Laryngeal Elevation Comp.sup.move.thyroid cart.w/comp.approx.arytenoids to epiglot petiole Anterior Hyoid Complete anterior movement Excursion Epiglottic Movement Complete inversion Laryngeal Vestibular Complete; no air/contrast in laryngeal vestibule Closure Pharyngeal Stripping Present - complete Wave Pharyngoesophageal Complete distention & complete duration; no obstruction Segment Opening of flow Tongue Base No contrast between tongue base & posterior pharyngeal Retraction wall Pharyngeal Residue Complete pharyngeal clearance Additional *Tongue base retraction, hyoid/laryngeal elevation and Pharyngeal epiglottic inversion were judged to be adequate. Impairment *Pharyngeal stripping wave and cricopharyngeal opening Observations appeared adequate and did not appear to impede bolus flow. *Post-swallow residue was minimal *No laryngeal penetration or aspiration was observed. *Pharyngeal phase WNL for pt's age. A/P View The IDDSI Framework Protocol: IDDSI.1 A/P View Observations Pharyngeal Complete Contraction Esophageal Clearance Esophageal retention Upright Position Vocal Fold Function Good Esophageal Function Slowed Clearing,Poor Motility,Stasis,Narrowing Additional A-P Thin barium and calibrated barium tablet provided for Observations AP trials *Upon changing to AP position, observed moderate amount of residue/stasis from solid and semi solid trials within the esophagus from sternum to lower esophagus. Pt c/o globus sensation that was uncomfortable *Several swallows of water needed to partially clear stasis. Stasis was observed across all trials *Thin barium cleared the esophagus to the stomach as expected *A trial of cookie was observed to pass to mid chest with tertiary contractions/retro flow observed *A calibrated barium tablet was observed to stop at sternal level and remained there for several minutes with pt c/o uncomfortable globus sensation. With several several swallows of water and barium, the barium tablet slowly moved toward the stomach eventually entering the stomach after 6 minutes:30 seconds. Normal transition from the UES to the stomach is approximately 30 seconds. Clinical Impressions Dysphagia Type Esophageal Findings Pt presented with severe esophageal dysphagia. Esophageal retention of solid and semisolid trials, difficulty in clearing retained contrast and a significantly slow transition from the UES to the stomach are highly unusual for a 30 year old pt. Pt reported that during meals she drinks several bottles of water to get the food down. Overall the pt presented with an esophagus typically seen in elderly ( 70+ years of age) patients. Given the above observations along with pt's report of numbness, muscle spasms, weakness and balance problems , neuromotor dysfunction is suspected (e.g., MS, MD, etc.) .Recommend pt return to neurologist for further evaluation. The above MBSS results and recommendations of the MBSS were discussed described to the pt while observing still pictures taken during the MBSS. All pt questions were addressed Patient Appropriate No for Therapy Recommendations Diet Comments no diet changes recommended at this time
== END ==
LOC: RAD 10:49
DX: R13.10 Dysphagia, unspecified (principal); R53.1 Weakness
CPT/HCPCS: 74230; 92611